=== PATIENT | male | born 1965 | race Caucasian/White ===

== ENCOUNTER 2019-01-05 08:52 | Day surgery (SDC) | payer BC ==
[2019-01-04 11:02] VITALS: BMI 40.4
[2019-01-05] MEDS ORDERED: PROPOFOL 200 MG/20 ML VIAL ONE (11:17)
--- NOTE | 2019-01-05 16:24 | OP ---
DATE OF PROCEDURE: 01/05/2019 PROCEDURE PERFORMED: Colonoscopy with snare polypectomy. PREMEDICATION: Given by Anesthesiology Department. PREPROCEDURE DIAGNOSIS: Colon screening. POSTPROCEDURE DIAGNOSES: 1. A 4-mm sessile polyp in the sigmoid, status post polypectomy. 2. Sigmoid diverticulosis coli. PROCEDURE IN DETAIL: Written consents were obtained prior to procedure. After adequate sedation, rectal exam performed was normal. The endoscope was advanced to the cecum. The quality of the bowel prep was good. The cecum, ascending colon, hepatic flexure, transverse colon, splenic flexure, and descending colon all appeared normal. Scattered diverticula were noted in the sigmoid colon. A 4-mm sessile polyp was noted and was removed with a cold snare and retrieved. The rectal vault appeared normal including retroflexion. The patient tolerated the procedure well. ASSESSMENT: 1. Sigmoid polyp, status post polypectomy. 2. Diverticulosis coli. 3. Otherwise, normal colon exam. RECOMMENDATIONS: 1. Fiber-rich diet. 2. Await biopsy result. Job ID: [id number]
--- NOTE | 2019-01-05 16:29 | OP ---
DATE OF PROCEDURE: 01/05/2019 PROCEDURE PERFORMED: Esophagogastroduodenoscopy with balloon dilatation. PREMEDICATION: Given by Anesthesiology Department. PREPROCEDURE DIAGNOSIS: Dysphagia to solids. POSTPROCEDURE DIAGNOSES: 1. Lower esophageal stricture, status post balloon dilatation. 2. Severe [place] grade D erosive esophagitis. 3. Otherwise, normal upper endoscopy. DESCRIPTION OF PROCEDURE: Written consents were obtained prior to procedure. After adequate sedation, forward-viewing endoscope was advanced down the stomach under direct vision to the second portion of duodenum. The duodenum and the bulb appeared normal. The gastric antrum, body, fundus, and cardia appeared normal. Retroflexion did not show any hiatal hernia. The GE junction was located approximately 40 cm from the incisors. A concentric stricture with moderate stenosis was noted at approximately 39 cm. Confluent erosions were noted extending for the last 3 cm in the lower esophagus consistent with class LA grade D erosive esophagitis. A multi-stage balloon was then used to dilate the stricture sequentially from 15 mm up to 16.5 mm. Endoscopy did not show any complication. Final dilatation was performed up to 18 mm balloon. There was good disruption of the stricture. There was minimal bleeding. No immediate complication was seen. The instrument was then further removed. The patient tolerated the procedure well. ASSESSMENT: 1. Lower esophageal stricture, status post balloon dilatation up to 18 mm. 2. [place] grade D erosive esophagitis. RECOMMENDATIONS: 1. Pantoprazole 40 mg p.o. b.i.d. 2. Anti-reflux measures discussed. 3. Follow up office in 1 month. 4. We will likely repeat endoscopy in 2 to 3 months to assess for any underlying Sprague's. Job ID: [id number]
== END 2019-01-05 12:45 | disposition home or self-care (01) ==
LOC: SDC 08:52
PROVIDERS: ATTEND Internal Medicine Gastroenterology
PROC: 0D758ZZ Dilation of Esophagus, Via Natural or Artificial Opening Endoscopic (ICD-10-PCS; principal; 2019-01-05)
PROC: 0DBN8ZZ Excision of Sigmoid Colon, Via Natural or Artificial Opening Endoscopic (ICD-10-PCS; principal; 2019-01-05)
DX: Z12.11 Encounter for screening for malignant neoplasm of colon (principal); D12.5 Benign neoplasm of sigmoid colon; K57.30 Diverticulosis of large intestine without perforation or abscess without bleeding; K22.2 Esophageal obstruction; K22.10 Ulcer of esophagus without bleeding; Z87.891 Personal history of nicotine dependence
CPT/HCPCS: 88305; J2704

== ENCOUNTER 2019-03-31 17:00 | Outpatient (CLI) | payer BC | END 2019-03-31 17:01 | disposition home or self-care (01) | LOC: SLEEPLAB 17:00 | PROVIDERS: ATTEND Internal Medicine | DX: G47.33 Obstructive sleep apnea (adult) (pediatric) (principal); K21.9 Gastro-esophageal reflux disease without esophagitis | CPT/HCPCS: 95806 ==

== ENCOUNTER 2019-06-10 20:30 | Outpatient (CLI) | payer BC | END 2019-06-10 20:31 | disposition home or self-care (01) | LOC: SLEEPLAB 20:30 | PROVIDERS: ATTEND Internal Medicine | DX: G47.33 Obstructive sleep apnea (adult) (pediatric) (principal) | CPT/HCPCS: 95811 ==

== ENCOUNTER 2019-07-12 07:12 | Day surgery (SDC) | payer BC ==
[2019-07-11 13:11] VITALS: BMI 47.3
[2019-07-12] MEDS ORDERED: PROPOFOL 200 MG/20 ML VIAL ONE (10:23)
[2019-07-12] MEDS ORDERED: Lidocaine 1% PF 5 ML VIAL ONE (10:23)
--- NOTE | 2019-07-12 14:27 | OP ---
DATE OF PROCEDURE: 06/21/2019 PROCEDURE PERFORMED: Esophagogastroduodenoscopy with Farley dilatation. PREMEDICATION: Given by Anesthesiology Department. PREPROCEDURE DIAGNOSES: 1. Gastroesophageal reflux disease. 2. History of esophageal stricture. 3. History of severe [place] grade B erosive esophagitis, followup endoscopy to assess for any underlying Sprague's. POSTPROCEDURE DIAGNOSES: 1. GE junction at 39 cm, no Sprague's. 2. Mild residual stricture. 3. Normal stomach and duodenum. DESCRIPTION OF PROCEDURE: Written consents were obtained prior to procedure. After adequate sedation, the forward-viewing endoscope was advanced down the stomach under direct vision to the second portion of duodenum. Both the second portion and the bulb appeared normal. Pylorus was patent. The gastric antrum, body, fundus, and cardia all appeared normal. Retroflexion did not show any abnormality. The Z-line is mildly variable and is located at 39 cm from incisors. No mucosal abnormality or evidence of Sprague's seen. Residual stricture was noted. The mid and upper esophagus appeared normal. A 54-Turkish Farley dilator was then used to dilate the esophagus. Repeat endoscopy did not show any complication. The patient tolerated the procedure well. ASSESSMENT: 1. Complete healing of severe erosive esophagitis, no underlying Sprague's. 2. Residual stricture, status post dilatation with 54-Turkish Farley. RECOMMENDATION: 1. Anti-reflux measures. 2. Weight reduction. 3. Decrease pantoprazole to 40 mg p.o. q.a.m. Job ID: [id number]
== END 2019-07-12 10:28 | disposition home or self-care (01) ==
LOC: SDC 07:12
PROVIDERS: ATTEND Internal Medicine Gastroenterology
PROC: 0D757ZZ Dilation of Esophagus, Via Natural or Artificial Opening (ICD-10-PCS; principal; 2019-07-12)
PROC: 0DJ08ZZ Inspection of Upper Intestinal Tract, Via Natural or Artificial Opening Endoscopic (ICD-10-PCS; principal; 2019-07-12)
DX: K21.9 Gastro-esophageal reflux disease without esophagitis (principal); Z79.899 Other long term (current) drug therapy
CPT/HCPCS: J2001; J2704

== ENCOUNTER 2024-05-04 06:20 | Day surgery (SDC) | payer BC ==
[2024-05-03 14:06] VITALS: BMI 48.6
[2024-05-04] MEDS ORDERED: fentaNYL PF 100 MCG/2 ML SYRINGE ONE (08:21)
[2024-05-04] MEDS ORDERED: Lidocaine 1% PF 5 ML VIAL ONE (08:21)
[2024-05-04] MEDS ORDERED: PROPOFOL 40 ML ONE (08:21)
== END 2024-05-04 09:26 | disposition home or self-care (01) ==
LOC: SDC 06:20
PROVIDERS: ATTEND Internal Medicine Gastroenterology
PROC: 0DBL8ZZ Excision of Transverse Colon, Via Natural or Artificial Opening Endoscopic (ICD-10-PCS; principal; 2024-05-04)
DX: Z12.11 Encounter for screening for malignant neoplasm of colon (principal); D12.3 Benign neoplasm of transverse colon; K57.30 Diverticulosis of large intestine without perforation or abscess without bleeding; N20.0 Calculus of kidney; K21.9 Gastro-esophageal reflux disease without esophagitis; G47.30 Sleep apnea, unspecified; M10.9 Gout, unspecified; E78.5 Hyperlipidemia, unspecified; I10 Essential (primary) hypertension; R73.03 Prediabetes; Z87.891 Personal history of nicotine dependence; Z79.84 Long term (current) use of oral hypoglycemic drugs; Z79.899 Other long term (current) drug therapy; Z86.0100 Personal history of colon polyps, unspecified
CPT/HCPCS: 88305; J2704